=== PATIENT | male | born 1985 | race Caucasian/White ===

== ENCOUNTER 2019-06-03 12:27 | Emergency (ER) | payer OTHER ==
[~2019-06-03] VITALS: Ht 165.1 cm; Wt 85.2 kg
[2019-06-03] MEDS ORDERED: ASPIRIN 81 MG TAB.CHEW PO ONE (12:45)
[2019-06-03] MEDS ORDERED: IV NORMAL SALINE 1,000ML 1,000 ML IV SCH (12:45)
[2019-06-03] MEDS ORDERED: ONDANSETRON PF 4 MG/2 ML VIAL. IV ONE (12:45)
[2019-06-03 12:48] LABS: BASO % 0 % (0-3); EOS % 0 % (0-3); HEMATOCRIT 48.3 % (39.0-53.0); HEMOGLOBIN 16.7 g/dL (13.0-17.5); LYMPH # 0.9 x10^3/uL (1.0-4.8); LYMPH % 8 % (24-48); MEAN CORPUSCULAR HEMOGLOBIN 32 pg (25-35); MEAN CORPUSCULAR HGB CONC 35 g/dL (31-37); MEAN CORPUSCULAR VOLUME 94 fL (79-100); MONO # 0.2 x10^3/uL (0.0-1.1); MONO % 2 % (0-9); NEUT # 9.7 x10^3uL (1.8-7.7); NEUT % 89 % (31-73); PLATELET COUNT 281 x10^3/uL (140-400); RED BLOOD COUNT 5.16 x10^6/uL (4.30-5.70); RED CELL DISTRIBUTION WIDTH 13.2 % (11.5-14.5); WHITE BLOOD COUNT 10.9 x10^3/uL (4.0-11.0)
[2019-06-03 12:57] LABS: ALBUMIN 4.3 g/dL (3.4-5.0); ALBUMIN/GLOBULIN RATIO 1.2 (1.0-1.7); CALCIUM 8.9 mg/dL (8.5-10.1); POTASSIUM 4.5 mmol/L (3.5-5.1); TOTAL BILIRUBIN 0.6 mg/dL (0.2-1.0); TOTAL PROTEIN 7.8 g/dL (6.4-8.2)
--- NOTE | 2019-06-03 12:59 | RAD ---
PORTABLE CHEST 1V History: Chest pain. Comparison: None FINDINGS: Low lung volumes. Cardiomediastinal silhouette within normal limits given the low lung volumes. No evidence of pneumothorax, pleural effusion or consolidating infiltrate. Hazy opacities throughout both lungs, likely compressive in nature. IMPRESSION: Hazy interstitial opacities in both lungs, likely compressive due to the low lung volumes. No consolidating airspace infiltrate. Electronically signed by: Tay Davis MD (06/03/2019 12:57 PM) [facility]
--- NOTE | 2019-06-03 13:13 | PHYS DOC ---
Past History Past Medical History: GERD, Migraines Past Surgical History: No Surgical History Alcohol Use: None Drug Use: None Adult General Chief Complaint Chief Complaint: NAUSEA/VOMITING/DIARRHEA HPI HPI 33-year-old male presents with longterm guards for nausea, vomiting, diarrhea and chest pain. She tells me started vomiting in the last night. He has also had diarrhea. His chest pain is intermittent and associated with the vomiting. He denies shortness of breath or diaphoresis. No known cardiac history. He is a prisoner, so unknown sick contacts. He denies any other injuries or complaints. Review of Systems Review of Systems Constitutional: Denies fever or chills [] Eyes: Denies change in visual acuity, redness, or eye pain [] HENT: Denies nasal congestion or sore throat [] Respiratory: Denies cough or shortness of breath [] Cardiovascular: No additional information not addressed in HPI [] GI: Generalized abdominal pain, nausea, vomiting, diarrhea [] : Denies dysuria or hematuria [] Musculoskeletal: Denies back pain or joint pain [] Integument: Denies rash or skin lesions [] Neurologic: Denies headache, focal weakness or sensory changes [] Endocrine: Denies polyuria or polydipsia [] All other systems were reviewed and found to be within normal limits, except as documented in this note. Current Medications Current Medications Current Medications Medications (Trade) Dose Ordered Sig/Na Start Time Stop Time Status Last Admin Dose Admin Aspirin (Children'S Aspirin) 324 mg 1X ONCE 06/03/19 12:45 06/03/19 12:46 DC 06/03/19 13:09 324 MG Ondansetron HCl (Zofran) 4 mg 1X ONCE 06/03/19 12:45 06/03/19 12:46 DC 06/03/19 13:09 4 MG Sodium Chloride 1,000 ml @ 100 mls/hr Q10H 06/03/19 12:45 06/03/19 22:44 06/03/19 13:09 100 MLS/HR Allergies Allergies Allergies Coded Allergies Type Severity Reaction Last Updated Verified No Known Drug Allergies 06/03/19 No Physical Exam Physical Exam Constitutional: Well developed, well nourished, no acute distress, non-toxic appearance. [] HENT: Normocephalic, atraumatic, bilateral external ears normal, oropharynx dry, no oral exudates, nose normal. [] Eyes: PERRLA, EOMI, conjunctiva normal, no discharge. [] Neck: Normal range of motion, no tenderness, supple, no stridor. [] Cardiovascular:Heart rate regular rhythm, no murmur [] Lungs & Thorax: Bilateral breath sounds clear to auscultation [] Abdomen: Bowel sounds normal, soft, no tenderness, no masses, no pulsatile masses. [] Skin: Warm, dry, no erythema, no rash. [] Back: No tenderness, no CVA tenderness. [] Extremities: No tenderness, no cyanosis, no clubbing, ROM intact, no edema. [] Neurologic: Alert and oriented X 3, normal motor function, normal sensory function, no focal deficits noted. [] Psychologic: Affect normal, judgement normal, mood normal. [] Current Patient Data Vital Signs Vital Signs Date Time Temp Pulse Resp B/P (MAP) Pulse Ox O2 Delivery O2 Flow Rate FiO2 06/03/19 12:27 98.0 74 22 98 Room Air Lab Results Laboratory Tests Test 06/03/19 12:30 White Blood Count 10.9 x10^3/uL (4.0-11.0) Red Blood Count 5.16 x10^6/uL (4.30-5.70) Hemoglobin 16.7 g/dL (13.0-17.5) Hematocrit 48.3 % (39.0-53.0) Mean Corpuscular Volume 94 fL (79-100) Mean Corpuscular Hemoglobin 32 pg (25-35) Mean Corpuscular Hemoglobin Concent 35 g/dL (31-37) Red Cell Distribution Width 13.2 % (11.5-14.5) Platelet Count 281 x10^3/uL (140-400) Neutrophils (%) (Auto) 89 % (31-73) H Lymphocytes (%) (Auto) 8 % (24-48) L Monocytes (%) (Auto) 2 % (0-9) Eosinophils (%) (Auto) 0 % (0-3) Basophils (%) (Auto) 0 % (0-3) Neutrophils # (Auto) 9.7 x10^3uL (1.8-7.7) H Lymphocytes # (Auto) 0.9 x10^3/uL (1.0-4.8) L Monocytes # (Auto) 0.2 x10^3/uL (0.0-1.1) Eosinophils # (Auto) 0.0 x10^3/uL (0.0-0.7) Basophils # (Auto) 0.0 x10^3/uL (0.0-0.2) Sodium Level 141 mmol/L (136-145) Potassium Level 4.5 mmol/L (3.5-5.1) Chloride Level 103 mmol/L (98-107) Carbon Dioxide Level 27 mmol/L (21-32) Anion Gap 11 (6-14) Blood Urea Nitrogen 14 mg/dL (8-26) Creatinine 1.0 mg/dL (0.7-1.3) Estimated GFR (Cockcroft-Gault) 85.0 BUN/Creatinine Ratio 14 (6-20) Glucose Level 134 mg/dL (70-99) H Calcium Level 8.9 mg/dL (8.5-10.1) Total Bilirubin 0.6 mg/dL (0.2-1.0) Aspartate Amino Transferase (AST) 24 U/L (15-37) Alanine Aminotransferase (ALT) 43 U/L (16-63) Alkaline Phosphatase 96 U/L (46-116) Troponin I Quantitative < 0.017 ng/mL (0-0.055) Total Protein 7.8 g/dL (6.4-8.2) Albumin 4.3 g/dL (3.4-5.0) Albumin/Globulin Ratio 1.2 (1.0-1.7) EKG EKG Sinus rhythm, rate 85, leftward axis, no ST elevations or depressions.[] Radiology/Procedures Radiology/Procedures [] Impressions: PORTABLE CHEST 1V History: Chest pain. Comparison: None FINDINGS: Low lung volumes. Cardiomediastinal silhouette within normal limits given the low lung volumes. No evidence of pneumothorax, pleural effusion or consolidating infiltrate. Hazy opacities throughout both lungs, likely compressive in nature. IMPRESSION: Hazy interstitial opacities in both lungs, likely compressive due to the low lung volumes. No consolidating airspace infiltrate. Electronically signed by: Tay Davis MD (06/03/2019 12:57 PM) [facility] DICTATED AND SIGNED BY: TAY DAVIS MD DATE: 06/03/19 1257 CC: NASIMA HELTON DO; PCP,NO ~ Course & Med Decision Making Course & Med Decision Making Pertinent Labs and Imaging studies reviewed. (See chart for details) Asians EKG is unremarkable. His labs are unremarkable. His troponin is negative. His chest x-rays negative for acute findings. See official read for more details. The patient was given 4 mg of Zofran IV and 4 by mouth. Liter of normal saline. The patient had an episode of diarrhea in the ED for which she was given 4 mg of loperamide. The patient likely has a viral gastroenteritis. He is stable for discharge at this time. We'll discharge him with a Zofran starter pack. [] Dragon Disclaimer Dragon Disclaimer This electronic medical record was generated, in whole or in part, using a voice recognition dictation system. Departure Departure: Impression: Primary Impression: Viral gastroenteritis Disposition: 01 HOME, SELF-CARE Condition: STABLE Referrals: PCPLILIYA (PCP) Patient Instructions: Viral Gastroenteritis, [id number] NASIMA HELTON DO Jun 03, 2019 13:13
--- NOTE | 2019-06-03 13:28 | EKG ---
[address] [address] Test Date: 2019-06-03 Test Time: 12:40:40 Pat Name: DESTINY REI Department: Room: Gender: M [employer]: : 1985 Requested By: NASIMA HELTON Order Number: [id number] Reading MD: Measurements Intervals Soper Rate: 85 P: 24 VT: 150 QRS: -1 QRSD: 88 T: 3 QT: 362 QTc: 431 Interpretive Statements SINUS RHYTHM LEFTWARD AXIS NO SPECIFIC ECG ABNORMALITIES RI6.01 No previous ECG available for comparison
[2019-06-03] MEDS ORDERED: LOPERAMIDE 2 MG CAPSULE PO ONE (14:00)
[2019-06-03] MEDS ORDERED: ONDANSETRON 4MG ODT 4TABLET STARTPACK. PO ONE (15:00)
[2019-06-03 15:27] VITALS: BP 123/70
== END 2019-06-03 15:32 | disposition home or self-care (01) ==
LOC: ER 12:27 → EEVIPCON 12:27 → ER 15:32
DX: A08.4 Viral intestinal infection, unspecified (principal); R07.89 Other chest pain; R11.2 Nausea with vomiting, unspecified; R19.7 Diarrhea, unspecified; K21.9 Gastro-esophageal reflux disease without esophagitis; G43.909 Migraine, unspecified, not intractable, without status migrainosus
CPT/HCPCS: 36415; 71045; 80053; 84484; 85025; 93005; 96361; 96374; 99285; J2405; Q0162; J7030